=== PATIENT | male | born 1960 | race Caucasian/White ===

== ENCOUNTER 2024-10-03 11:27 | Emergency (ER) | payer BC, SELFPAY ==
[2024-10-03 11:44] VITALS: BP 134/94; PULSE 84; RESP 20; TEMP 36.4; O2SAT 95
--- NOTE | 2024-10-03 12:02 | ED_ITS ---
HPI - Skin/Abscess/Foreign Bdy General Chief complaint: Skin/Abscess/Foreign Body Stated complaint: Rash Time Seen by Provider: 10/03/24 11:50 Source: patient and RN notes reviewed Mode of arrival: ambulatory Limitations: no limitations History of Present Illness HPI narrative: Patient presents today a rash to his bilateral feet, lower legs, and waistline x1 week after [place] a [place]. He is unsure of etiology, but states he was covered in clothing. Denies any current itching, but states some of the lesions have blisters on them refer the rupture than scabbed over. He has been using ibuprofen, calamine lotion, tea tree oil without much improvement. Related Data Home Medications ?Medication ?Instructions ?Recorded ?Confirmed ?Last Taken ?Type lamotrigine 200 mg tablet mg 10/03/24 Unknown History Allergies Allergy/AdvReac Type Severity Reaction Status Date / Time No Known Drug Allergies Allergy none Verified 10/03/24 11:50 [facility] Past Medical History Medical History (Updated 10/03/24 @ 12:04 by Chayito Yao, [facility], ) Bipolar disorder Comments At time of signature, I have reviewed and agree with nursing past medical, surgical, social and family history unless otherwise noted. Please see nursing chart for further information. There is no relevant family history pertinent to the presenting complaint Exam Narrative: GENERAL: Well-appearing, well-nourished, and in no acute distress. HEAD: Normocephalic, atraumatic. EYES: EOMI. No redness or drainage. Conjunctivae normal. ENT: Mucous membranes pink and moist. NECK: Normal AROM. CHEST: No respiratory distress. SKIN: Warm, dry. Capillary refill normal. Normal skin turgor. Diffuse scabbed lesions to the dorsums of the bilateral feet on erythematous bases with clear drainage noted. These scabbed lesions extend to the bilateral ankles and lower legs. On the right lower leg the scabbed lesions are larger and there is 1 with some purulent discharge and more pronounced erythema. No fluctuance or induration noted. There are a few scattered vesicles also noted that measure approximately 1 cm round that have not yet ruptured. Patient has similar scabbed and vesicular lesions to the waistline circumferentially. NEURO: No focal deficits. Alert and oriented x3. Gait steady. PSYCH: Normal affect. No signs of depression or anxiety. Course Course Level of Care: Express Care Visit Vital Signs Vital signs: Vital Signs Temperature 97.6 F 10/03/24 11:44 Pulse Rate 84 10/03/24 11:44 Respiratory Rate 20 10/03/24 11:44 Blood Pressure 134/94 H 10/03/24 11:44 Pulse Oximetry 95 10/03/24 11:44 Oxygen Delivery Room Air 10/03/24 11:44 Temperature 97.6 F 10/03/24 11:44 Pulse Rate 84 10/03/24 11:44 Respiratory Rate 20 10/03/24 11:44 Blood Pressure 134/94 H 10/03/24 11:44 Pulse Oximetry 95 10/03/24 11:44 Oxygen Delivery Room Air 10/03/24 11:44 Reviewed MDM - Skin/Abscess/Foreign Bdy MDM Narrative Medical decision making narrative: Pleasant 64-year-old male with history bipolar disease on Lamictal presents with multiple scabbed vesicular lesions to the bilateral feet, lower legs, and waistline for 1 week after camping in a forest. At home interventions have not improved symptoms and he continues to have some discomfort associated with these lesions along with signs of developing bacterial infection. Patient will be tr eated with Keflex and prednisone. Vital signs stable. Patient agrees with plan. Anticipatory guidance given. Differential Diagnosis Differential diagnosis: Likely abscess of skin or subcutaneous tissue, urticaria, cellulitis, insect bites, impetigo and contact dermatitis Critical Care Time Critical Care Time Critical Care Time: No Discharge Plan Discharge Clinical Impression: Insect bite Qualifiers: Encounter type: initial encounter Site of insect bite: unspecified site Qualified Code(s): W57.XXXA - Bitten or stung by nonvenomous insect and other nonvenomous arthropods, initial encounter Patient Disposition: Home Condition: Stable Instructions: Antibiotic Form, Insect Bite or Sting (ED) Additional Instructions: Please take the Keflex and prednisone as directed. Continue the allergy medication such as Zyrtec, Claritin, or Yanet. Follow-up with your PCP in 3 days if symptoms are not improving. Your blood pressure was elevated above 120/80 today at Urgent Care. This puts you above the threshold for follow up. Please schedule a followup visit with your personal physician as soon as possible, for further evaluation and treatment. Even blood pressure exceeding 120/80 may indicate pre-hypertension. Patient Language: Kyrgyz Prescriptions: New cephalexin 500 mg capsule 500 mg PO Q6H 7 Days Qty: 28 0RF prednisone 10 mg tablet 30 mg PO DAILY 5 Days Qty: 15 0RF No Action lamotrigine 200 mg tablet Follow-up/Referrals: PHYSICIAN,WIRER MAINTENANCE [Primary Care Provider] - Time of Disposition: 12:01
== END 2024-10-03 12:09 | disposition home or self-care (01) ==
PROVIDERS: Emergency Provider Nurse Practitioner
DX: S90.862A Insect bite (nonvenomous), left foot, initial encounter (principal); S90.861A Insect bite (nonvenomous), right foot, initial encounter; S80.862A Insect bite (nonvenomous), left lower leg, initial encounter; S80.861A Insect bite (nonvenomous), right lower leg, initial encounter; S30.861A Insect bite (nonvenomous) of abdominal wall, initial encounter; S90.562A Insect bite (nonvenomous), left ankle, initial encounter; S90.561A Insect bite (nonvenomous), right ankle, initial encounter; W57.XXXA Bitten or stung by nonvenomous insect and other nonvenomous arthropods, initial encounter; F31.9 Bipolar disorder, unspecified
CPT/HCPCS: 99203; G0463